=== PATIENT | male | born 1990 | race Two or more races ===

== ENCOUNTER 2017-09-16 19:18 | Emergency (ER) | payer OTHER ==
[2017-09-16 19:30] VITALS: RESP 18
--- NOTE | 2017-09-16 20:46 | ED PDOC ---
HPI: Male Pain Time Seen by Provider: 09/16/17 19:48 Chief Complaint (Nursing): Male Genitourinary Chief Complaint (Provider): foreskin swelling Additional Complaint(s): Pt reports that since last night, following sexual intercourse with fiance, he started to have swelling at the head of his penis on the foreskin. He has not been able to pull his foreskin down over the end of the penis. No difficulty urinating. No dysuria/hematuria or frequency. No fever. No discharge or bleeding. Seen at an urgent care center and advised to go to ER for further evaluation. Past Medical History Reviewed: Historical Data, Nursing Documentation, Vital Signs Vital Signs: Last Vital Signs Temp 97.5 F L 09/16/17 19:28 Pulse 69 09/16/17 19:28 Resp 18 09/16/17 19:28 BP 133/81 09/16/17 19:28 Pulse Ox 100 09/16/17 19:28 - Medical History PMH: No Chronic Diseases - Surgical History Surgical History: No Surg Hx - Family History Family History: States: No Known Family Hx - Home Medications Home Medications: Ambulatory Orders Medication Instructions Recorded Cefdinir [Omnicef] 300 mg PO BID #20 cap 09/16/17 Mupirocin 2% Ointment [Bactroban 1 appl TP BID #1 tube 09/16/17 Ointment] - Allergies Allergies/Adverse Reactions: Allergies Allergy/AdvReac Type Severity Reaction Status Date / Time apple Allergy SWELLING Verified 09/16/17 19:28 pear Allergy SWELLING Verified 09/16/17 19:28 Physical Exam - Reviewed Nursing Documentation Reviewed: Yes Vital Signs Reviewed: Yes - Physical Exam Appears: Positive for: Non-toxic, No Acute Distress Skin: Positive for: Warm, Dry Gastrointestinal/Abdominal: Positive for: Soft. Negative for: Tenderness, Mass , Distended, Guarding Male Genital Exam: Positive for: other (Penis: Uncircumcised. Glans appear normal with no lesions. Frenulum of anterior prepuce with collection of small clear bullae (1cm-2cm). Distal prepuce with hemostatic tear. Rest of prepuce loose around distal penis with no signs of paraphimosis. ). Negative for: bleeding, erythema, urethral discharge Back: Negative for: Decreased ROM Lymphatic: Negative for: Inguinal Node Tenderness - ECG O2 Sat by Pulse Oximetry: 100 - Physician Consult Information Physician Contacted: Brannon Martinez Outcome Of Conversation: Treat as frenulum tear. Advised antibiotics orally and bactroban. Followup in office this week. Disposition - Clinical Impression Clinical Impression: Inflammation of prepuce - Disposition Referrals: Brannon Martinez MD [Staff Provider] - (CALL TOMORROW MORNING TO SETUP FOLLOW UP APPOINTMENT IN 24-48 HOURS) Disposition: Routine/Home Disposition Time: 22:00 Condition: STABLE Additional Instructions: THE FRENULUM IS THE BAND OF TISSUE THAT CONNECTS THE PREPUCE (FORESKIN) TO THE GLANS (HEAD) OF THE PENIS. IT APPEARS TO BE IRRITATED AND HAVE AN EARLY TEAR, WHICH CAN OCCUR FROM FRICTION. CONTINUE TO APPLY ICE PACK TO THE SWOLLEN AREA FOR 20 MINUTES AT A TIME AND TAKE IBUPROFEN NEEDED. TAKE ANTIBIOTICS AND APPLY BACTROBAN PRESCRIBED AND FOLLOW UP WITH UROLOGIST IN 24-48 HOURS. Prescriptions: Cefdinir [Omnicef] 300 mg PO BID #20 cap Mupirocin 2% Ointment [Bactroban Ointment] 1 appl TP BID #1 tube Forms: [employer] (Greek)
[2017-09-16 20:52] VITALS: BP 125/67; PULSE 72; TEMP 97
[2017-09-17 15:28] VITALS: O2SAT 100
== END 2017-09-16 20:38 | disposition home or self-care (01) ==
LOC: H.ER 19:18
DX: N48.29 Other inflammatory disorders of penis (principal)